=== PATIENT | female | born 1975 | race Asian ===

== ENCOUNTER 2018-09-08 10:10 | Emergency (ER) | payer OTHER ==
[~2018-09-08] VITALS: Ht 162.6 cm; Wt 68.0 kg
[2018-09-08] MEDS ORDERED: KETOROLAC 60MG/2ML VIAL IM ONE (10:45)
[2018-09-08] MEDS ORDERED: DIAZEPAM 5 MG TABLET PO ONE (10:45)
[2018-09-08 13:20] VITALS: BP 133/64
== END 2018-09-08 13:22 | disposition home or self-care (01) ==
LOC: ER 10:54
DX: S16.1XXA Strain of muscle, fascia and tendon at neck level, initial encounter (principal); S29.012A Strain of muscle and tendon of back wall of thorax, initial encounter; S33.5XXA Sprain of ligaments of lumbar spine, initial encounter; M25.532 Pain in left wrist; M79.642 Pain in left hand; R03.0 Elevated blood-pressure reading, without diagnosis of hypertension; F17.200 Nicotine dependence, unspecified, uncomplicated; V49.49XA Driver injured in collision with other motor vehicles in traffic accident, initial encounter; Y93.89 Activity, other specified; Y92.89 Other specified places as the place of occurrence of the external cause; Y99.8 Other external cause status
CPT/HCPCS: 29125; 72070; 72100; 72125; 73110; 73130; 81025; 96372; 99284; J1885